=== PATIENT | male | born 1985 | race Caucasian/White ===

== ENCOUNTER 2016-12-21 11:32 | Emergency (ER) | payer OTHER ==
[~2016-12-21 11:32] MED LIST: AFRIN3 ML INH; AMOXICILLIN500 M1 PO; BACTRIM DS TABL1 TA1 PO; FLEXERIL10 MG PO; HYCODAN60 ML 5MG/ PO; HYDROCODON-ACE1 EAC1 PO; LORTAB 10/500 T1 TAB PO; MOTION SICKNESS25 M5 PO; NAPROXEN500 M1 PO; NEURONTIN PO; SKELAXIN PO; TYLENOL #3 PO; VOLTAREN50 MG PO
== END 2016-12-21 11:44 | disposition left against medical advice (07) ==
LOC: SED 11:32
DX: M54.12 Radiculopathy, cervical region (principal); F17.200 Nicotine dependence, unspecified, uncomplicated; Z88.1 Allergy status to other antibiotic agents
CPT/HCPCS: 96372; 99283; J2920

== ENCOUNTER → 2016-12-22 | Outpatient (CLI) | payer OTHER ==
--- NOTE | ~2016-12-22 | CR58 ---
[facility] A Service of [facility] RADIOLOGY TEXT RESULTS PATIENT: STEF COWART LOCATION: [facility] : 81 UNIT #: [id number] AGE: [address]: Peyton Virk MD SEX: M ORDER DR: [id number] [facility] [address] [place], [place] [address] [id number] O MR#: [id number] Acc #: [id number] NAME: STEF COWART. : 1985 SEX: M STUDY DATE/TIME: 12/22/2016 10:34 UNIT: [facility] ROOM: STUDY DESCRIPTION: CR Cervical Spine 2 or 3 Views Attending Physician: Peyton Virk M.D. Referring Physician: Peyton Virk M.D. Ordering Physician: Peyton Virk M.D. Primary Care Physician: Peyton Virk M.D. MEDICAL IMAGING REPORT This report is preliminary unless electronic signature is present EXAM 3 views of the cervical spine DATE 12/22/2016 HISTORY 31-year-old male with complaints of left shoulder pain, cervical spine pain. Patient states symptoms have been present for 2 weeks. No documented injury. COMPARISON None FINDINGS No acute cervical spine fracture or subluxation is seen. Disc space height appears well maintained. No appreciable facet arthropathy is identified. No osteolytic or osteoblastic lesions are evident. Imaged lung apices appear clear. No abnormal prevertebral soft tissue swelling is identified. There is mild reversal of normal cervical lordosis centered at C4-5. IMPRESSION Mild reversal of normal cervical lordosis centered at C4-5. Otherwise, unremarkable 3 views of the cervical spine. Dictated by... April Bryant M.D. THIS IS AN ELECTRONICALLY VERIFIED REPORT April Bryant M.D. at 12/23/2016 10:06 PM [facility]/to [facility] A Service of [facility] RADIOLOGY TEXT RESULTS PATIENT: STEF COWART [id number] : [birth year] UNIT #: [id number] AGE: [address]: Peyton Virk MD SEX: M ORDER DR: TD: 12/22/2016 12:40 JOB #: [id number] MEDICAL IMAGING REPORT COPY
--- NOTE | ~2016-12-22 | CR229 ---
[facility] A Service of [facility] RADIOLOGY TEXT RESULTS PATIENT: STEF COWART LOCATION: [facility] : 81 UNIT #: [id number] AGE: [address]: Peyton Virk MD SEX: M ORDER DR: [id number] [facility] [address] [place], [place] [address] [id number] O MR#: [id number] Acc #: [id number] NAME: STEF COWART. : 1985 SEX: M STUDY DATE/TIME: 12/22/2016 10:42 UNIT: [facility] ROOM: STUDY DESCRIPTION: CR Shoulder Min 2 View Lt Attending Physician: Peyton Virk M.D. Referring Physician: Peyton Virk M.D. Ordering Physician: Peyton Virk M.D. Primary Care Physician: Peyton Virk M.D. MEDICAL IMAGING REPORT This report is preliminary unless electronic signature is present EXAM 3 views of the left shoulder, 12/22/2016 at 10:42 HISTORY Left shoulder pain. Cervical spine pain. Patient states symptoms have been present for 2 weeks. No documented injury. COMPARISON None FINDINGS AP view with internal and external rotation of the shoulder girdle shows satisfactory relationship of the humeral head and glenoid fossa. The joint space is normal. There is no identifiable fracture or dislocation or bony destructive process about the shoulder girdle anatomy. The acromioclavicular joint is normal. There is no radiopaque foreign body in the region. IMPRESSION Normal left shoulder. Dictated by... April Bryant M.D. THIS IS AN ELECTRONICALLY VERIFIED REPORT April Bryant M.D. at 12/23/2016 10:06 PM Ani TD: 12/22/2016 12:36 JOB #: [id number] MEDICAL IMAGING REPORT COPY
== END | disposition home or self-care (01) ==
LOC: CRAD 10:16
DX: M54.2 Cervicalgia (principal); M25.512 Pain in left shoulder
CPT/HCPCS: 72040; 73030